=== PATIENT | female | born 1990 | race Caucasian/White ===

== ENCOUNTER 2018-09-14 12:09 | Emergency (ER) | payer BC ==
[2018-09-14 12:14] VITALS: BP 131/76
[2018-09-14] MEDS ORDERED: ACETAMINOPHEN 325 MG TABLET PO ONE (12:44)
[2018-09-14] MEDS ORDERED: BENZONATATE 100 MG CAPSULE PO ONE (12:44)
[2018-09-14] MEDS ORDERED: IBUPROFEN 600 MG TABLET PO ONE (12:44)
[2018-09-14] MEDS ORDERED: MONTELUKAST SODIUM 10 MG TABLET PO ONE (12:45)
--- NOTE | 2018-09-14 12:50 | RADIOLOGY REPORT (SQ) ---
EXAM DESCRIPTION: CHEST 2 VIEWS COMPLETED DATE/TIME: 09/14/2018 12:32 pm REASON FOR STUDY: painful breathing COMPARISON: None. EXAM PARAMETERS: NUMBER OF VIEWS: two views TECHNIQUE: Digital Frontal and Lateral radiographic views of the chest acquired. RADIATION DOSE: NA LIMITATIONS: none FINDINGS: LUNGS AND PLEURA: No opacities, masses or pneumothorax. No pleural effusion. MEDIASTINUM AND HILAR STRUCTURES: No masses or contour abnormalities. HEART AND VASCULAR STRUCTURES: Heart normal size. No evidence for failure. BONES: No acute findings. HARDWARE: None in the chest. OTHER: No other significant finding. IMPRESSION: NO ACUTE RADIOGRAPHIC FINDING IN THE CHEST. TECHNICAL DOCUMENTATION: JOB ID: [id number] [employer]- All Rights Reserved Reading location - IP/workstation name: [email or web address]
--- NOTE | 2018-09-14 13:02 | ER Document Report ---
HPI - HPI Time Seen by Provider: 09/14/18 12:17 Pain Level: 3 Context: Patient is a 27-year-old female who presents the emergency department with a chief complaint of congestion and painful breathing. She has had her symptoms for a little less than a week. Admits to rhinorrhea, and a cough. She denies any hemoptysis. Denies ear pain. She did also have a cold about a week ago, but states that she feels like she has gotten worse. She also has pain to the left side of her chest. She has not had any good rest. Her last dose of ibuprofen was yesterday. - CONSTITUTIONAL Constitutional: REPORTS: Chills. DENIES: Fever - EENT EENT: REPORTS: Nasal Drainage-Clear, Congestion. DENIES: Sore Throat, Ear Pain, Eye problems - NEURO Neurology: DENIES: Headache, Weakness, Vision blurred, Dizzinesss / Vertigo - CARDIOVASCULAR Cardiovascular: DENIES: Chest pain - RESPIRATORY Respiratory: REPORTS: Trouble Breathing, Coughing - GASTROINTESTINAL Gastrointestinal: DENIES: Abdominal Pain - REPRODUCTIVE LMP: 08/27/18 Reproductive: DENIES: : - MUSCULOSKELETAL Musculoskeletal: DENIES: Extremity pain - DERM Skin Color: Normal Skin Problems: None Past Medical History - Social History Smoking Status: Never Smoker Frequency of alcohol use: None Drug Abuse: None Family History: Reviewed & Not Pertinent Patient has suicidal ideation: No Patient has homicidal ideation: No - Past Medical History Cardiac Medical History: Pulmonary Medical History: Neurological Medical History: Renal/ Medical History: Denies: Hx Peritoneal Dialysis GI Medical History: Musculoskeletal Medical History: Infectious Medical History: Past Surgical History: Reports: Hx Section - x3 Vertical Provider Document - CONSTITUTIONAL Agree With Documented VS: Yes Exam Limitations: No Limitations General Appearance: No Apparent Distress - INFECTION CONTROL TRAVEL OUTSIDE OF THE [place] IN LAST 30 DAYS: No - HEENT HEENT: Atraumatic, Normocephalic, PERRLA, Pharyngeal Tenderness, Pharyngeal Erythema. negative: Conjuctival Injection, Pharyngeal Exudate, Tympanic Membrane Red, Tympanic Membrane Bulging Notes: Erythema and edema noted to the nasal mucosa - NECK Neck: Normal Inspection - RESPIRATORY Respiratory: Breath Sounds Normal, No Respiratory Distress - CARDIOVASCULAR Cardiovascular: Regular Rate, Regular Rhythm Pulses: Normal: Radial - MUSCULOSKELETAL/EXTREMETIES Musculoskeletal/Extremeties: FROM - NEURO Level of Consciousness: Awake, Alert, Appropriate Motor/Sensory: No Motor Deficit, No Sensory Deficit - DERM Integumentary: Warm, Dry, No Rash Course - Re-evaluation Re-evalutation: 09/14/18 13:02 Patient's chest x-ray that was ordered in triage is negative for any acute abnormalities. No pneumonia appreciated. She is well in appearance. Vital signs are stable. I do not suspect she has any life-threatening etiology at this time. She will be sent home with supportive care of ibuprofen, Tylenol, Tessalon Perles, Flonase, and Singulair. I am giving her Singulair because Zyrtec and Claritin apparently have some lactose in them and she is lactose intolerant. Patient's son takes Singulair also, so she is familiar with this medication. She will follow up with her primary care provider. She is in agreement with this plan. Verbal discharge instructions were given to the patient. They verbalized understanding. They are stable for discharge. - Vital Signs Vital signs: Temp Pulse Resp BP Pulse Ox 97.8 F 86 16 131/76 H 98 09/14/18 12:14 09/14/18 12:14 09/14/18 12:14 09/14/18 12:14 09/14/18 12:14 Discharge - Discharge Clinical Impression: Upper respiratory infection, viral, Cough, Rhinorrhea Condition: Stable Disposition: HOME, SELF-CARE Instructions: Upper Respiratory Illness ([facility]) Additional Instructions: You were seen today in the emergency department for a cough, cold chills, and runny nose. Your x-ray is normal. Your symptoms are most consistent with an upper respiratory viral infection. Please take acetaminophen 1000 mg and ibuprofen 600 mg every 6 hours as needed for any body aches or fever. You have been given montelukast, medication to help with your runny nose. Take 1 tablet every day while you have symptoms. You have also been given Flonase, medication to help with the inflammation in your nose. Place 1 spray to each nostril twice a day. You have also been given Tessalon Perles, medication to help with your cough. Take as directed. If you develop a fever greater than 100.4 F while on ibuprofen and acetaminophen, develop shortness of breath, difficulty breathing, or any symptoms that are worrisome to you, please return to the emergency department. Prescriptions: Montelukast Sodium [Singulair 10 mg Tablet] 10 mg PO QHS #30 tablet Benzonatate [Tessalon Perle 100 mg Capsule] 100 mg PO Q8HP PRN #40 cap PRN Reason: Fluticasone Propionate [Flonase Nasal [place] 50 Mcg/[place] 16 gm] 2 sprays NASL Q12 #1 inhaler Referrals: [facility] [Primary Care Provider] - Follow up as needed
== END 2018-09-14 13:12 | disposition home or self-care (01) ==
LOC: ER 12:09
DX: J06.9 Acute upper respiratory infection, unspecified (principal); B97.89 Other viral agents as the cause of diseases classified elsewhere; R07.1 Chest pain on breathing; J34.89 Other specified disorders of nose and nasal sinuses; R05 Cough; R68.83 Chills (without fever); E73.9 Lactose intolerance, unspecified
CPT/HCPCS: 71046; 99283